=== PATIENT | male | born 1955 | race Caucasian/White ===

== ENCOUNTER 2024-06-01 05:57 | Inpatient (IN) ==
--- NOTE | 2024-05-21 14:06 | Anesthesiology Consultation ---
Date of Service May 21, 2024 Assessment & Plan (1) Encounter for pre-operative examination: - Per criminal lawyer on 05/20/24: No known infectious disease contacts, current infectious disease symptoms in past 10 days or COVID positive test result in the past 30 days. Chart Review Chart Review: Acceptable Risk for Surgery and Patient NOT seen in Pre Admission Testing History Surgery Operation Date: 06/01/24 08:40 Proposed Procedures p Robotic Laparoscopic Assisted Radical Nephrectomy - Michael Maravilla MD Height/Weight Height: 5 ft 7 in Weight: 72.575 kg Allergies Allergy/AdvReac Type Severity Reaction Status Date / Time No Known Allergies Allergy Verified 04/28/24 09:42 Medications Home Medications Medication Instructions Recorded Confirmed Last Taken atorvastatin 20 mg tablet 20 mg PO HS 03/26/24 05/20/24 Unknown citalopram 20 mg tablet 20 mg PO QAM 03/26/24 05/20/24 Unknown omeprazole 20 mg capsule,delayed 20 mg PO QAM 03/26/24 05/20/24 Unknown release vitamin B complex 1 tab PO DAILY 05/20/24 05/20/24 Unknown Past Medical History Medical History (Updated 05/21/24 @ 14:02 by Gabrielle Dennis PA-C) Acid reflux Anxiety and depression BPH (benign prostatic hyperplasia) Dyslipidemia History of trigger finger Renal mass Past Family History Family History Other No family history of adverse response to anesthesia Past Surgical History Surgical History History of carpal tunnel release of both wrists History of esophagogastroduodenoscopy (EGD) Hx of colonoscopy Hx of tonsillectomy Hx of wisdom tooth extraction Social History Smoking Status: Current every day smoker Smoking cigarettes per day: 30 per day - advised Do You Dip or Chew Tobacco: No Hx Alcohol Use: Yes alcohol intake frequency: holidays/special occasions only Hx Substance Use: No substance use type: does not use Lab Results Anesthesia Preop Results Results Anesthesia Widget: WBC 5.66 K/ul (4.8-10.8) 05/20/24 Hgb 15.2 g/dl (14.0-18.0) 05/20/24 Hct 44.4 % (42.0-52.0) 05/20/24 Plt 158 K/uL (130-400) 05/20/24 Na 139 mmol/L (136-145) 05/20/24 K 3.8 mmol/L (3.5-5.1) 05/20/24 Cl 105 mmol/L (98-107) 05/20/24 CO2 27 mmol/L (21-32) 05/20/24 BUN 14 mg/dl (6-23) 05/20/24 Creat 0.96 mg/dl (0.6-1.4) 05/20/24 Glucose Level 121 mg/dl (70-99(Fasting)) H 05/20/24 Testing Electrocardiogram Date: 05/20/24 NSR, rate 66 bpm Incomplete RBBB *unconfirmed report* Chest X-Ray Date: 05/20/24 1. Emphysematous change with no active disease in the chest. 2. There is a questionable nodular opacity in the right upper lobe, which may be artifactual. A chest CT is recommended for further assessment and to exclude underlying pulmonary nodule. Other Testing Abdomen pelvis CT 04/26/24 Focal soft tissue density lesion with enhancement in interpole region of right kidney as described-likely neoplastic lesion. Differentials include oncocytoma, renal cell carcinoma. Suggested histopathological correlation.
[2024-06-01] MEDS: LR 15ML/HR IV SCH (06:29)
[2024-06-01] MEDS ORDERED: MIDAZOLAM HCL 1 MG/ML 2ML VIAL ONE (07:18)
[2024-06-01] MEDS ORDERED: PROPOFOL IV EMULSION 10 MG/ML 20 ML VIAL IV ONE (07:18)
[2024-06-01] MEDS ORDERED: fentaNYL citrate PF 100 MCG/2 ML VIAL ONE ×2 (07:18→08:12)
[2024-06-01] MEDS ORDERED: HYDROmorphone INJ 2 MG/ML SYR/VIAL IV PRN (07:20)
[2024-06-01] MEDS ORDERED: PROMETHAZINE HCL 6.25 MG in SODIUM CHLORIDE 0.9% 50 ML IV PRN (07:20)
[2024-06-01] MEDS ORDERED: ATROPINE SULFATE 0.1 MG/ML 10ML SYR IV PRN (07:20)
[2024-06-01] MEDS ORDERED: ePHEDrine sulfate 50 MG/ML AMP IV PRN (07:20)
[2024-06-01] MEDS ORDERED: KETAMINE HCL 10MG/ML SYR ONE (07:24)
--- NOTE | 2024-06-01 07:25 | History & Physical Report ---
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 presenting for definitive treatment today risks, benefits, and expectations reviewed plan for right radical nephrectomy today History of Present Illness Primary Care Provider: Rolando Marshall right renal mass presenting today for definitive treatment via nephrectomy Allergies Allergy/AdvReac Type Severity Reaction Status Date / Time No Known Allergies Allergy Verified 06/01/24 06:09 Home Medications Medication Instructions Recorded Confirmed Type atorvastatin 20 mg tablet 20 mg PO HS 03/26/24 06/01/24 History citalopram 20 mg tablet 20 mg PO QAM 03/26/24 06/01/24 History omeprazole 20 mg capsule,delayed 20 mg PO QAM 03/26/24 06/01/24 History release vitamin B complex 1 tab PO DAILY 05/20/24 06/01/24 History Past Med/Surg History Problem List Encounter for pre-operative examination Benign prostatic hyperplasia (BPH) with straining on urination Renal mass Medical History Acid reflux Anxiety and depression BPH (benign prostatic hyperplasia) Dyslipidemia History of trigger finger Renal mass Surgical History History of carpal tunnel release of both wrists History of esophagogastroduodenoscopy (EGD) Hx of colonoscopy Hx of tonsillectomy Hx of wisdom tooth extraction Family History Other No family history of adverse response to anesthesia Social History Smoking Status: Current every day smoker Tobacco Type: Cigarettes Cigarettes Per Day: 30 per day - advised; Second Hand Exposure: No; Do You Dip or Chew Tobacco: No; Tobacco Cessation Education Requested by Patient: No Hx Alcohol Use: Yes Hx Substance Use: No Preferred Language: Frisian Communication Ability: Effective Focus Puller Required: No Beliefs That Will Affect Care: None Current Living Situation: Significant Other Other Information That Helps Us Care for You: No Feels Safe at Home: Yes Safety Concerns: Feels Safe At This Time Assistive Devices: Glasses Physical Exam Constitutional: well developed and well nourished Neck: neck nontender Respiratory: normal respiratory effort; no respiratory distress and does not use accessory muscles Cardiovascular: Rate/Rhythm: regular rate Vessels: radial pulses present Extremities: no edema Gastrointestinal (Abdomen): Inspection/Auscultation: abdomen normal to inspection Percussion/Palpation: abdomen soft; abdomen nontender and no guarding Musculoskeletal: Head/Neck/Chest: normocephalic and head atraumatic Extremities: extremities normal to inspection Skin: no rashes and no lesions Trauma: no evidence of skin trauma Neurologic: awake; not obtunded Speech / Cognition: normal speech Motor/Sensory: no tremor Psychiatric: Orientation: alert and oriented x 3 Genitourinary: no CVA tenderness Lymphatic: no lymphadenopathy Results & Data Vital Signs (Past 12 Hours) Vital Signs Temp Pulse Resp BP Pulse Ox O2 Del Method 06/01/24 06:13 36.6 C 67 16 139/78 93 Room Air
[2024-06-01] MEDS ORDERED: ACETAMINOPHEN 1000 MG/100 ML IV IV ONE (07:26)
[2024-06-01] MEDS ORDERED: MANNITOL 25% 12.5 GM/50 ML VIAL IV ONE (07:26)
[2024-06-01] MEDS: ceFAZolin 2000MG 2,000 MG/15 ML SYR IV SCH (07:38)
[2024-06-01] MEDS: FLOSEAL HEMOSTATIC MATRIX 10ML TOP ONE (08:54)
[2024-06-01] MEDS: SURGICEL ABSORB HEMOSTAT 2IN X 14IN TOP ONE (08:55)
[2024-06-01] MEDS ORDERED: ePHEDrine sulfate 50 MG/5 ML SYR ONE (08:57)
[2024-06-01] MEDS ORDERED: DEXAMETHASONE SOD INJ 4 MG/ML VIAL ONE (08:57)
[2024-06-01] MEDS ORDERED: ONDANSETRON INJ 2 MG/ML 2 ML VIAL ONE (08:57)
[2024-06-01] MEDS ORDERED: SUGAMMADEX SODIUM 200 MG/2 ML VIAL IV ONE (09:33)
[2024-06-01] MEDS: BUPIVACAINE 0.5 % 5 MG/1 ML MPF 30ML VIAL ONE (09:40)
--- NOTE | 2024-06-01 09:58 | Operative Report ---
PG Post Operative Report Pre & Post Diagnosis Operation Date: 06/01/24 07:30 Pre-Op Diagnosis: Right renal mass Post-Op Diagnosis: Right renal mass I identified the patient and participated in the time-out.: Yes Procedure Operation Date: 06/01/24 07:30 Actual Procedures p Robotic Assisted Laparoscopic Radical Nephrectomy - Right(Right) - Michael Maravilla MD Surgeon Michael Maravilla MD Learning And Development Coordinator Nancy Garcia Estimated Blood Loss 15 Findings Consistent with Post-Op Diagnosis Specimens Right kidney for routine pathology Description of Procedure Patient was identified in the preoperative holding area, appropriate informed consents were reviewed and completed and the patient was transported to the operating suite. Upon arrival he received appropriate preoperative antibiotics and general anesthesia. He was placed in the left side down right side up lateral decubitus position with the bed flexed. He was padded and placed appropriately before sterile prep and drape. A Parham catheter was inserted. To begin the surgical portion of the case a Veress needle was passed into the right upper quadrant and insufflation of the abdomen was achieved to 15 mmHg without difficulty. I then marked tentative port sites including a 12 mm midline port approximately 5 cm superior to the umbilicus. I marked a s ubxiphoid 5 mm liver retraction port. I placed myers for four 8 mm robotic ports downed the lateral border of the rectus muscle with the first approximately 2 fingerbreadths below the costal margin and each subsequent port approximately 6 to 7 cm inferior to the 1 above it. I utilized the port third from the costal margin to enter the abdomen with a Visiport and a 0 degree lens. Inspection revealed no adhesions. Atraumatic injury with the Veress needle. All other port sites were inspected and clear of adhesions they were placed under direct vision. I then docked the robot. A ProGrasp was placed in the third port, the camera was in the second port closest to the costal margin. Scissors and the very top port and a fenestrated bipolar in the most inferior port. I began to incise the white line of Toldt and medialized the colon. This exposed the underlying duodenum which was kocherized. I incised the peritoneum over the lateral border of the kidney as well as the superior border between the top of the kidney and the liver. I did use a 5 mm liver retractor to elevate the liver. The mass was visualized through Gerota's fascia. He had very thin Gerota's fascia. I continued to dissect along the medial border of the kidney with very cautious dissection. I was able to identify the ureter and the gonadal vessels. 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 I followed the border of the IVC to the inferior border of the renal vein and skeletonized the renal veins entirely. A renal artery was noted to be immediately posterior and inferior to the largest section of the renal vein. It branches approximately 2 cm lateral to the IVC. I dissected posterior to the kidney and utilized my fourth robotic arm to elevate the kidney and placed the hilar structures on stretch. I was then able to advance a stapler through the 12 mm midline medical laboratory assistant port and control the renal artery and vein and a solitary staple load. A second load was utilized to separate the medial superior portion of the kidney from the adrenal gland. We then proceeded to continue our dissection around the lateral and superior border of the kidney. A combination of monopolar and bipolar electrocautery was utilized for any vascular attachments and everything else was dissected sharply. The only remaining attachment at that time was the inferior pole of Gerota's fascia. This contained the ureter but no gonadal vein. The ureter was controlled with a combination of bipolar and monopolar electrocautery. The kidney was then entirely free. I pushed it into the deep pelvis. We inspected the renal fossa which showed no active bleeding. Hemostasis was excellent. The liver retractor was removed. The 12 mm midline port was closed utilizing a Frandy-Lori device. I then proceeded to make a low midline incision beginning approximately 1 fingerbreadth below the umbilicus and dissecting down towards the pubic symphysis. I entered the peritoneum just under the umbilicus and expanded my incision. I was able to grasp the kidney and remove it through this incision. We reapproximated the peritoneum with a 0 Vicryl before closing the fascia with a 0 PDS. All incisions were infiltrated with half percent Marcaine before closure with 4-0 Monocryl. Dermabond was placed over all incisions. Specimen was passed off the table for routine pathology. Nancy Garcia assisted from incision to closure. There were no complications. I attest to the content of the Intraoperative Record and any orders documented therein. Any exceptions are noted below.
[2024-06-01 10:32] LABS: Basophils # (auto) 0.01 K/uL (0.00-0.20); Basophils % (auto) 0.1 %; Eosinophils % (auto) 1.1 %; Hematocrit (blood only) 40.6 % (42.0-52.0); Hemoglobin 13.8 g/dl (14.0-18.0); Immature Granulocytes # (auto) 0.04 K/uL (0.01-0.20); Immature Granulocytes % (auto) 0.5 %; Lymphocytes # (auto) 0.98 K/uL (1.20-3.40); Lymphocytes % (auto) 11.2 %; Mean Corpuscular Hemoglobin 32.2 pg (25.0-34.0); Mean Corpuscular Volume 94.6 fL (80.0-100.0); Mean Platelet Volume 9.6 fL (9.4-12.4); Monocytes # (auto) 0.18 K/uL (0.11-0.59); Monocytes % (auto) 2.1 %; Neutrophils # (auto) 7.47 K/uL (1.40-6.50); Platelet Count 141 K/uL (130-400); RDW Coefficient of Variation 11.8 % (11.5-14.5); RDW Standard Deviation 40.9 fL (36.4-46.3); Red Blood Count 4.29 M/uL (4.70-6.10); White Blood Count 8.78 K/ul (4.8-10.8)
[2024-06-01 10:49] LABS: BUN Creatinine Ratio 17.3 (10-20); Calcium 8.4 mg/dl (8.6-10.3); Creatinine Clr Calc Pharmacy 68.4 ml/min; Est GFR (African American) 92.1 ml/min; Est GFR (Non-African American) 79.5 ml/min; Potassium 4.4 mmol/L (3.5-5.1)
[2024-06-01] MEDS ORDERED: oxyCODONE HCL IR 5 MG TAB (IMMEDIATE RELEASE) PO PRN ×2 (11:35)
[2024-06-01] MEDS ORDERED: ONDANSETRON INJ 2 MG/ML 2 ML VIAL IV PRN (11:35)
[2024-06-01] MEDS ORDERED: MoRPHine SULFATE 4 MG/ML 1 ML CARP\\VIAL IV PRN (11:35)
[2024-06-01] MEDS ORDERED: MoRPHine SULFATE 2 MG/ML CARP IV PRN (11:35)
[2024-06-01] MEDS: SODIUM CHLORIDE 0.9% 1,000 ML IV SCH (11:47)
[2024-06-01] MEDS: ACETAMINOPHEN 325 MG TAB PO SCH (12:10)
--- NOTE | 2024-06-01 14:20 | Anesthesiology Progress Note ---
Date of Service June 01, 2024 Anesthesia Post Procedure Vital Signs Vital Signs: Temp Pulse Pulse Resp BP Pulse Ox O2 Del Method 06/01/24 13:42 36.4 C L 84 16 138/68 93 Nasal Cannula 06/01/24 12:42 36.7 C 85 18 152/73 H 96 Room Air 06/01/24 12:11 36.5 C 76 18 134/70 96 Nasal Cannula 06/01/24 11:45 Nasal Cannula 06/01/24 11:45 36.5 C 82 18 146/68 H 95 Nasal Cannula 06/01/24 11:20 79 14 145/70 H 94 Nasal Cannula 06/01/24 11:10 36.4 C L 83 14 146/77 H 92 Nasal Cannula 06/01/24 11:00 74 20 167/84 H 93 Nasal Cannula 06/01/24 10:50 76 16 162/88 H 93 Nasal Cannula 06/01/24 10:40 72 17 123/92 95 Non-rebreather 06/01/24 10:30 74 20 132/72 97 Non-rebreather 06/01/24 10:20 80 16 130/74 92 Oxymask 06/01/24 10:10 81 15 131/65 92 Oxymask 06/01/24 10:05 36.1 C L 87 16 131/64 92 Oxymask 06/01/24 06:13 36.6 C 67 16 139/78 93 Room Air O2 Flow Rate 06/01/24 13:42 2 06/01/24 12:42 3 06/01/24 12:11 3 06/01/24 11:45 3 06/01/24 11:45 3 06/01/24 11:20 3 06/01/24 11:10 3 06/01/24 11:00 3 06/01/24 10:50 3 06/01/24 10:40 8 06/01/24 10:30 12 06/01/24 10:20 12 06/01/24 10:10 10 06/01/24 10:05 9 06/01/24 06:13 Transfer of Care Handoff Completed per policy Notes Mental Status: alert / awake / arousable and participated in evaluation Nausea / Vomiting: adequately controlled Pain: adequately controlled Airway Patency, RR, SpO2: stable & adequate BP & HR: stable & adequate Hydration State: stable & adequate Anesthetic Complications: no major complications apparent and Pt Satisfied with anesthetic care
[2024-06-01] MEDS: ceFAZolin 1000MG 1,000 MG/7.5 ML SYR IV SCH (15:08)
[2024-06-01] MEDS: NICOTINE 21 MG/24 HR TDSY TD SCH (15:08)
[2024-06-01] MEDS: DOCUSATE SODIUM 100 MG CAP PO SCH (20:43)
[2024-06-01] MEDS: ATORVASTATIN 20 MG TAB PO SCH (20:43)
[2024-06-01] MEDS: HEPARIN SOD 5,000 UNIT/0.5 ML VIAL SQ SCH (20:43)
[2024-06-02 03:37] VITALS: RESP 16
[2024-06-02] MEDS: CITALOPRAM 20 MG TAB PO SCH (07:33)
[2024-06-02] MEDS: PANTOprazole 40 MG TAB PO SCH (07:34)
[2024-06-02 08:52] LABS: Basophils # (auto) 0.01 K/uL (0.00-0.20); Basophils % (auto) 0.1 %; Hematocrit (blood only) 37.5 % (42.0-52.0); Immature Granulocytes # (auto) 0.07 K/uL (0.01-0.20); Immature Granulocytes % (auto) 0.5 %; Lymphocytes # (auto) 1.48 K/uL (1.20-3.40); Lymphocytes % (auto) 10.2 %; Mean Corpuscular Hemoglobin 32.3 pg (25.0-34.0); Mean Corpuscular Hgb Conc 34.7 g/dL (32.0-36.0); Mean Corpuscular Volume 93.1 fL (80.0-100.0); Mean Platelet Volume 10.4 fL (9.4-12.4); Monocytes # (auto) 0.84 K/uL (0.11-0.59); Monocytes % (auto) 5.8 %; Neutrophils # (auto) 12.13 K/uL (1.40-6.50); Neutrophils % (auto) 83.4 %; Platelet Count 135 K/uL (130-400); RDW Coefficient of Variation 11.9 % (11.5-14.5); RDW Standard Deviation 40.5 fL (36.4-46.3); Red Blood Count 4.03 M/uL (4.70-6.10); White Blood Count 14.53 K/ul (4.8-10.8)
--- NOTE | 2024-06-02 08:59 | Urology Progress Note ---
Date of Service June 02, 2024 Assessment & Plan (1) Renal mass: Plan Postop day #1 status post right radical nephrectomy Recovery seems to be on pace right now Awaiting full lab reports this morning Hemoglobin is stable Although he is developed a small hematoma adjacent to his extraction site, I do not believe this warrants any further care or special attention I discussed that this will resolve spontaneously over time Plan for Parham catheter removal this morning Plan for likely discharge home later today Advance diet Admission and Anticipated Discharge Date Admission Date: June 01, 2024 Subjective No major issues overnight Had a small amount of leakage/seepage from his incisions but otherwise no severe pain Has not ambulated yet but has been out of bed within his room Urine is clear Vitals are stable Physical Exam Physical Exam: Has a small hematoma adjacent to his extraction incisionhe reports that this started to swell a small amount after heavy coughing overnight He has a small amount of seepage of blood from the incision as well but nothing drastic Other incisions are all appropriate Results & Data Vital Signs (Past 12 Hours) Vital Signs Temp Pulse Resp BP Pulse Ox O2 Del Method 06/02/24 07:27 36.5 C 64 16 150/68 H 95 Room Air 06/02/24 03:27 37.0 C 69 16 145/65 H 92 Room Air 06/01/24 23:25 36.7 C 87 18 137/71 93 Room Air 06/01/24 21:56 36.6 C 71 16 143/66 H 93 Room Air PG Care Time/CCT Total # of Minutes Spent Total Time Spent with Patient: Total time spent is greater than 50% in coordination of care (as documented) at patient's floor/unit and/or counseling patient: Coding Level of Care Code None Diagnoses Renal mass N28.89
[2024-06-02 09:00] LABS: BUN Creatinine Ratio 14.5 (10-20); Calcium 8.3 mg/dl (8.6-10.3); Creatinine Clr Calc Pharmacy 57.3 ml/min; Est GFR (African American) 74.3 ml/min; Est GFR (Non-African American) 64.1 ml/min; Potassium 4.3 mmol/L (3.5-5.1)
[2024-06-02 11:27] VITALS: BP 133/60; PULSE 63; TEMP 97.3; O2SAT 93
--- NOTE | 2024-06-02 11:28 | Discharge Summary ---
Date of Service June 02, 2024 Admission HPI Per Admitting Provider right renal mass presenting today for definitive treatment via nephrectomy Admission Exam Per Admitting Provider Constitutional: well developed and well nourished Neck: neck nontender Respiratory: normal respiratory effort; no respiratory distress and does not use accessory muscles Cardiovascular: Rate/Rhythm: regular rate Vessels: radial pulses present Extremities: no edema Gastrointestinal (Abdomen): Inspection/Auscultation: abdomen normal to inspection Percussion/Palpation: abdomen soft; abdomen nontender and no guarding Musculoskeletal: Head/Neck/Chest: normocephalic and head atraumatic Extremities: extremities normal to inspection Skin: no rashes and no lesions Trauma: no evidence of skin trauma Neurologic: awake; not obtunded Speech / Cognition: normal speech Motor/Sensory: no tremor Psychiatric: Orientation: alert and oriented x 3 Genitourinary: no CVA tenderness Lymphatic: no lymphadenopathy Principal Diagnosis Right renal mass Discharge Exam Constitutional well developed and well nourished; no acute distress Respiratory normal respiratory effort; no respiratory distress and no labored breathing Gastrointestinal (Abdomen) Inspection/Auscultation: abdomen normal to inspection Musculoskeletal Head/Neck/Chest: normocephalic Skin Midline surgical incision with small hematoma adjacent, small amount of sanguinous drainage. Other incisions C/D/I. Neurologic moves all extremities and awake Psychiatric Orientation: alert and oriented x 3 Discharge Data Allergies Allergy/AdvReac Type Severity Reaction Status Date / Time No Known Allergies Allergy Verified 06/01/24 06:09 Procedures Performed Operation Date: 06/01/24 07:30 Actual Procedures p Robotic Assisted Laparoscopic Radical Nephrectomy - Right(Right) - Michael Maravilla MD Hospital Course (1) Renal mass: Plan Postop day #1 status post right radical nephrectomy Recovery seems to be on pace right now Awaiting full lab reports this morning Hemoglobin is stable Although he is developed a small hematoma adjacent to his extraction site, I do not believe this warrants any further care or special attention I discussed that this will resolve spontaneously over time Plan for Parham catheter removal this morning Plan for likely discharge home later today Advance diet Total Time Total Time Spent Total Time Spent (In Minutes): 29 Discharge Plan Discharge Items Patient Disposition: Home - Self-Care Reason For Visit: renal mass Discharge Diagnosis: Renal mass Activity: Per Instructions section Lifting: No more than 25 pounds Bathing Comment: Okay to shower after discharge, no tub bath or soaking Sexual Activity: Wait until after follow-up appointment Exercise/Sports: Wait until after follow-up appointment Driving/Machine Use: No driving while taking prescription pain medication Non-emergency contact: Surgeon and Urologist Call non-emergency contact if: your pain is not controlled, your temperature is above 101, your wound has increased redness, your wound has increased drainage and your wound pain has increased Follow-up/Referrals: Michael Maravilla MD [Physician] - 06/21/24 11:15 am Rolando,Rolando [Non-Staff] - Diet: Regular Addtl Attending Provider Instructions: Please take all medications as prescribed and keep all follow-ups as scheduled. Please call our office at [phone] with any questions, concerns or need to reschedule appointments for any reason. We are happy to assist you. Recovering at home: We recommend having someone with you for the first few days after surgery to help care for you. It is okay to shower tomorrow. Please avoid swimming, bathing or using hot tub until incisions are well healed. Avoid driving until you are not requiring pain medication any further. Walk at least a few times a day. Increase your distance, as you feel able. Stairs in your home are okay. Please avoid strenuous or sexual activity until your follow-up. We recommend using stool softener (i.e. Colace) to prevent constipation and straining, especially the first two weeks post operatively. Call [facility] at [phone] if you experience: Chest pain or trouble breathing (call 461 or go to the hospital). Fever of 101F or higher Symptoms of infection at incision site, including redness or swelling, warmth, or bad-smelling drainage If you have catheter, and you notice: o Bloody urine or drainage that is dark red or has large clots (Please remember a small amount of blood is normal) o No drainage from the catheter for more than 6 hours o The catheter comes out of your bladder Pain that is not controlled with medicines Pending Studies at Discharge: Yes (Pathology) Stand-Alone Forms: [employer], Smoking Cessation Medications and DC Order Prescriptions: New oxycodone-acetaminophen [Percocet] 5-325 mg tablet 1 tab PO TID PRN (Reason: pain) Qty: 7 0RF Rx Instructions: as needed for post operative pain Continued omeprazole 20 mg capsule,delayed release(DR/EC) 20 mg PO QAM citalopram 20 mg tablet 20 mg PO QAM atorvastatin 20 mg tablet 20 mg PO HS vitamin B complex 1 tab PO DAILY Discharge Orders: Discharge Order (Routine); Ordered 06/02/24 Ordered By: Nancy Garcia Admission Data Admit Date/Time: 06/01/24 10:03 Attending Provider: Michael Maravilla Admit Provider: Michael Maravilla Primary Care Provider: Tru Malhotra Other Interventions: Discharge Summary Assessment (RN) Last Done: 06/02/24 11:42 Coding Level of Care Code 50196 IN/OBS DISCH 30 MIN/LESS Diagnoses Renal mass N28.89
== END 2024-06-02 12:10 | disposition home or self-care (01) | DRG 658 ==
LOC: ASU 05:57 → 3E 10:03